=== PATIENT | male | born 1950 | race Caucasian/White ===

== ENCOUNTER → 2020-07-07 | Outpatient (REF) | payer MEDICARE | LOC: M LAB REF 17:24 | PROVIDERS: ATTEND Physician Assistant Medical | DX: Z11.59 Encounter for screening for other viral diseases (principal) ==

== ENCOUNTER → 2020-10-18 | Outpatient (CLI) | payer MEDICARE ==
--- NOTE | 2020-10-18 15:27 | REP ---
INDICATION: PAIN COMPARISON: None TECHNIQUE: Five views FINDINGS: The the tiniest of marginal osteophytes are seen involving all 3 compartments. The compartments are symmetric and well maintained. There is no acute fracture or destructive osseous lesion. IMPRESSION: Minimal degenerative changes <Electronically signed by Ben Haro > 10/18/20 1522
== END ==
LOC: M WUC 14:37
PROVIDERS: ATTEND Physician Assistant Medical
DX: M25.561 Pain in right knee (principal)

== ENCOUNTER → 2021-08-05 | Outpatient (CLI) | payer MEDICARE | LOC: M WHC 08:15 | PROVIDERS: ATTEND Physician Assistant Medical | DX: N64.59 Other signs and symptoms in breast (principal) | CPT/HCPCS: 76642; 77066; G0279 ==

== ENCOUNTER → 2022-07-17 | Outpatient (REF) | payer MEDICARE ==
[2022-07-17 18:14] LABS: THYROGLOBULIN ANTIBODY < 15.0 U/ML (<60.0)
[2022-07-17 18:15] LABS: THYROID PEROXIDASE ANTIBODY < 28.0 U/ML (<60.0)
== END ==
LOC: M LAB REF 16:26
PROVIDERS: ATTEND Physician Assistant Medical
DX: R53.83 Other fatigue (principal)

== ENCOUNTER 2022-09-13 09:53 | Day surgery (SDC) | payer MEDICARE ==
[~2022-09-13] VITALS: Ht 167.6 cm; Wt 116.1 kg
[~2022-09-13 09:53] MED LIST: MAGN200T PO; NS 1,000 ML IV ONE; SIMV20TA22 PO; VITMTA PO
[2022-09-13 11:24] VITALS: TEMP 96.8
[2022-09-13 11:46] VITALS: BP 162/92; O2SAT 94
== END 2022-09-13 11:56 | disposition home or self-care (01) ==
LOC: M OPP 09:53
PROVIDERS: ATTEND Internal Medicine Gastroenterology
DX: Z86.010 Personal history of colon polyps (principal); K64.0 First degree hemorrhoids; K57.30 Diverticulosis of large intestine without perforation or abscess without bleeding; K31.89 Other diseases of stomach and duodenum; K22.89 Other specified disease of esophagus; Z88.7 Allergy status to serum and vaccine
CPT/HCPCS: 43239; 88305; G0105